=== PATIENT | female | born 1995 | race Caucasian/White ===

== ENCOUNTER 2018-06-06 13:19 | Emergency (ER) | payer OTHER, SELFPAY ==
[2018-06-06 13:22] VITALS: BP 117/50; PULSE 76; RESP 14; TEMP 36.6; O2SAT 97; BMI 22.1
[2018-06-06 13:30] VITALS: BP 117/50; PULSE 76; RESP 14; O2SAT 98
[2018-06-06] MEDS: Diphth,Pertuss(Acell),Tet Vac 0.5 ML Vial IM (14:20)
--- NOTE | 2018-06-06 14:46 | ED.VISSUMM ---
- ER Visit Summary Date of Service: 06/06/18 Chief Complaint: Thumb laceration History of Present Illness: The patient is a 22 F who presents with a thumb laceration. She accidentally cut her left thumb with a serrated knife while at work. She is uncertain of her last tetanus immunization. No other injuries. This occurred just prior to arrival. Physical Examination: Afebrile vitals are normal Heart regular rate No respiratory distress There is a 1 cm laceration of the distal left thumb which involves the very tip of the nail bed along the ulnar side of the thumb brisk capillary refill normal sensation light touch Test Results: Not indicated Emergency Department Course and Treatment: Patient was anesthetized utilizing a digital block. Wound was cleansed with sterile saline. The small avulsed section nail was removed. The skin was repaired using 2 simple interrupted 5-0 nonabsorbable sutures. There is no subungual hematoma. There is only a very tiny section of the nailbed involvement I do not believe any nailbed repair is warranted. Instructed on local wound care. She understands return for new or worsening symptoms was discharged home. Treatment Plan: [] Disposition: Discharge Impression: Left thumb laceration This note was generated with [employer] dictation software. It may contain incorrect words, spelling, and punctuation that were not noted in review of the chart prior to signing ED Disposition - Plan for ED Patient: Chief Complaint: Laceration Referrals: Evens Brand MD [Primary Care Provider] -
--- NOTE | 2018-06-06 14:49 | ED.DEP ---
ED Disposition - Plan for ED Patient: Chief Complaint: Laceration Instructions: ED Laceration Hand Referrals: Evens Brand MD [Primary Care Provider] -
[2018-06-06 14:52] VITALS: BP 120/74; PULSE 80; RESP 14; O2SAT 99
== END 2018-06-06 14:53 | disposition home or self-care (01) ==
PROVIDERS: Emergency Provider Emergency Medicine; Family Provider Family Medicine; PCP Family Medicine
DX: S61.112A Laceration without foreign body of left thumb with damage to nail, initial encounter (principal); W26.0XXA Contact with knife, initial encounter; Y93.9 Activity, unspecified; Y92.9 Unspecified place or not applicable
CPT/HCPCS: 12001; 90471; 90715; 99283

== ENCOUNTER 2019-11-22 21:58 | Emergency (ER) | payer OTHER, SELFPAY ==
[2019-11-22] VITALS (7 sets, daily range): BP systolic 105–136; BP diastolic 70–87; PULSE 83–108; RESP 15–18; TEMP 36.7; O2SAT 97–99; BMI 22.8
--- NOTE | 2019-11-22 22:09 | RAD_ITS ---
HISTORY: Injury on trampoline heart. Deformity. Findings: Trimalleolar fracture is present with dislocation. The talus is dislocated laterally with the distal fibular fracture and with the medial malleolus fracture. There is apex dorsal and medial to the distal fibular fracture. Soft tissue swelling is present around the ankle. An ankle effusion is present. RAD/Ankle 2 Views IMPRESSION: Trimalleolar fracture with lateral dislocation of the talus relative to the distal tibia at 2245 Reported and signed by: Abdirashid Sloan MD Electronically Signed: Abdirashid Sloan MD at 22:44 EST Tel , Service support ,
[2019-11-22] MEDS: Propofol 200 MG/20 ML Vial IV BOLUS (23:11)
--- NOTE | 2019-11-22 23:24 | RAD_ITS ---
HISTORY: Reduction of trimalleolar fracture. 3 images of the left ankle. Comparison study is November 22, 2019. Findings: The trimalleolar fracture dislocation has been mostly reduced. Dorsal angulation to the distal fibula fracture persists. A cast has been placed. RAD/Ankle min 3 Views IMPRESSION: Improved alignment of trimalleolar fracture with reduction. Persistent apex dorsal angulation of distal fibular fracture at 2346 Reported and signed by: Abdirashid Sloan MD Electronically Signed: Abdirashid Sloan MD at 23:45 EST Tel , Service support ,
[2019-11-22] MEDS: Ondansetron 4 MG/2 ML Vial IV (23:44)
[2019-11-22] MEDS: Morphine 4 MG/ML Syringe IV (23:47)
--- NOTE | 2019-11-22 23:53 | ED.DCSUM_ITS ---
- ER Visit Summary Date of Service: 11/22/19 Procedural sedation note: I was asked by the patient's attending emergency physician Dr. Lewis to assist with sedation for the closed reduction of fracture dislocation of the left ankle. Patient last had solid food approximately 5 hours before procedure. This is a emergent procedure. Patient received roughly 1 mg/kg bolus of propofol followed by 0.5 mg/kg boluses adequate sedation was achieved and the procedure was ended. Patient did not have any apnea, hypoxia, hypotension or evidence of aspiration. She was allowed to recover without incident. This note was generated with [employer] dictation software. It may contain incorrect words, spelling, and punctuation that were not noted in review of the chart prior to signing ED Disposition - Plan for ED Patient: Referrals: Evens Horton MD [Primary Care Provider] -
--- NOTE | 2019-11-23 00:10 | ED.DCSUM_ITS ---
- ER Visit Summary Date of Service: 11/23/19 Chief Complaint: Left ankle injury History of Present Illness: The patient is a 24 F no significant past medical or surgical history. Patient was jumping on a trampoline when she injured her left ankle. This occurred at least an hour ago maybe longer. She has an obvious deformity. Denies any other injuries. No prior history. Physical Examination: Young female no acute distress. Tolerating the pain well. Vital signs are stable afebrile. H EENT exam atraumatic. Pupils round reactive light. No signs of trauma. Neck nontender. Trachea midline. Lungs clear to auscultation bilaterally. Heart regular rhythm no murmur. Chest wall nontender. Abdomen soft and nontender. Normal bowel sounds no peritoneal signs. Extremities moves all 4. Neurovascular intact. Her left hip and knee are nontender. Her left ankle has an obvious deformity. Skin is intact. It appears to be a fracture dislocation. She does have a palpable DP pulse. She is able to wiggle her toes. Has normal touch sensation to her foot and no gross bony deformity in her foot. Achilles tendon is intact. Neurologically she is awake alert with no focal deficits. Test Results: Ankle x-ray 3 views shows trimalleolar fracture of the ankle and dislocation. Post reduction ankle x-ray again shows a better aligned trimalleolar fracture. On the lateral view the fibula fracture is still posteriorly displaced. Emergency Department Course and Treatment: Patient has a fracture distribution of her left ankle which closed. The foot is neurovascularly intact. She was consciously sedated with propofol by the other emergency physician. I manually reduce the fracture dislocation. I again checked the dorsalis pedis pulse. And she was placed in a well-padded posterior Ortho-Glass short leg splint with lateral stirrups. Patient is doing very well with her sedation she is awake and alert. She was given morphine IV for pain and Zofran. Treatment Plan: Ice and elevate. No weightbearing. Crutches. [place] for pain 20 no refill. Motrin for pain and swelling. Follow-up with of orthopedics. Disposition: Discharge Impression: Acute left ankle closed trimalleolar fracture dislocation. Conscious sedation with propofol Manual reduction of the fracture dislocation Short leg posterior splint Ortho-Glass with bilateral stirrups This note was generated with Dragon dictation software. It may contain incorrect words, spelling, and punctuation that were not noted in review of the chart prior to signing ED Disposition - Plan for ED Patient: Disposition: Home or Assisted Living Instructions: FRACTURE, Lower Extremity Prescriptions: Hydrocodone/Acetaminophen [[place] 5-325 Tablet] 1 ea PO Q4H PRN PRN #20 tab PRN Reason: Pain Or Fever Prescription Printed Referrals: Linda Barahona DO [STAFF PHYSICIAN] - As soon as possible Additional Instructions: Ice and elevate your ankle to decrease pain and swelling. Motrin for pain and swelling. [place] for more severe pain. No weightbearing. Crutches to get around. Call follow-up with of orthopedics this coming week.
--- NOTE | 2019-11-23 00:15 | ED.DEP ---
ED Disposition - Plan for ED Patient: Disposition: Home or Assisted Living Instructions: FRACTURE, Lower Extremity Prescriptions: Hydrocodone/Acetaminophen [[place] 5-325 Tablet] 1 ea PO Q4H PRN PRN #20 tab PRN Reason: Pain Or Fever Prescription Printed Referrals: Linda Barahona DO [STAFF PHYSICIAN] - As soon as possible Additional Instructions: Ice and elevate your ankle to decrease pain and swelling. Motrin for pain and swelling. [place] for more severe pain. No weightbearing. Crutches to get around. Call follow-up with of orthopedics this coming week.
[2019-11-23] MEDS: HYDROcodone Bitartrate/Apap 5/325 Tablet PO (00:22)
[2019-11-23 00:25] VITALS: BP 96/64; PULSE 74; RESP 16; O2SAT 96
== END 2019-11-23 00:29 | disposition home or self-care (01) ==
PROVIDERS: Emergency Provider Emergency Medicine; Family Provider Family Medicine; PCP Family Medicine
DX: S82.852A Displaced trimalleolar fracture of left lower leg, initial encounter for closed fracture (principal); Y93.44 Activity, trampolining; Y92.89 Other specified places as the place of occurrence of the external cause; Y99.9 Unspecified external cause status
CPT/HCPCS: 27818; 73600; 73610; 96374; 96375; 99152; 99285; J7040; A4216; J2405

== ENCOUNTER 2019-12-03 09:17 | Day surgery (SDC) | payer OTHER, SELFPAY ==
[2019-11-25 08:21] VITALS: BMI 22.8
--- NOTE | 2019-11-25 08:57 | HP_ITS ---
I have re-examined the patient. There are no clinical changes since date of exam. Intake Vital Signs 11/25/19 Height 5 ft 2 in 11/25/19 Weight: 135 lb 11/25/19 BMI 24.7 Intake Visit Reasons: LEFT ANKLE Allergies Penicillins Allergy (Verified 11/22/19 22:02) Unknown Medications Norethindrone AC-Eth Estradiol [Junel 1 mg-20 Mcg Tablet] 1 tab PO DAILY 11/22/19 [History Confirmed 11/25/19] Hydrocodone/Acetaminophen [[place] 5-325 Tablet] 1 ea PO Q4H PRN PRN #20 tab 11/23/19 [Rx Confirmed 11/25/19] PFSH Social History (Updated 11/25/19 @ 08:57 by Linda Barahona DO) Smoking Status: Never smoker HPI LEFT ANKLE: Surgical H&P: Yes Details: Parts of this documentation were recorded by a scribe, this documentation accurately reflects the service provided and the decisions made by me, Linda Barahona DO 11/25/19 0815. PEYTON LAY is a 24 year old F NEW patient here today for left ankle injury. DOI: 11/22/2019. Patient [place] and she was doing flips and she landed on her ankle wrong and states that she may twisted her ankle. She had instant pain and was then taken to [facility] and she had images taken there. Patient was then reduce, and placed in a splint and mother wished to F/U with Dr. Barahona. Denies any previous fx to the left ankle. Denies numbness, tingling or other associated symptoms. Able to move all toes. Warm to touch. ROS Musc Reports joint pain, Reports joint swelling, Reports limited joint movement, Denies numbness, Reports radiating pain into limb, Reports stiffness, Denies tingling Skin/Breast Denies redness, Denies lesions, Denies itching, Denies rash, Denies skin swelling Neuro No numbness, No tingling Ortho Exam Left Foot/Ankle Date of injury: 11/22/19 Skin: Yes Soft Tissue Swelling Exam: Yes Soft tissue swelling Sensation: Deep Peroneal Nerve: I, Superficial Peroneal Nerve: I, Tibial Nerve: I, Sural Nerve: I, Saphenous Nerve: I Pulses: Dorsalis Pedis: 2 ANKLE: neg homans sign No rales rhonchi wheezing, no abdominal pain, no no audible bruits Assessment & Plan Problems 1. Closed trimalleolar fracture of left ankle, initial encounter S82.264F Plan Personally reviewed the patient's medical history, medications, surgeries and recent exams if available. X-rays were reviewed. There is no obvious fracture, dislocation, or lucency noted. Educated on the anatomy of the ankle and explained that her fracture needs surgical repair. Her swelling today is to great to operate tomorrow. We will have her return on to check for wrinkle sign for surgery on sunday. Reapplied splint today with webroll. Reviewed post op restrictions of boot and limited weight bearing. Explained the use of Lovenox post op due to her control, she should stop it now anyway and her need to work on ankle pumps and moving post op to decrease risk of DVT. Reviewed the pre-operative plans with the patient. Risks and benefits of the procedure were fully explained, including but not limited to infection, neurovascular injury, continued pain, arthritis, stiffness, need for further surgery, re-injury, DVT, PE, general risks of anesthesia, and loss of limb or life. The patient understands all the risks and does wish to proceed with written consent. Follow up or sooner if pain, swelling, numbness or associated symptoms, or concerns develop. All questions answered. Patient in agreement of plan. Coding Level of Care Code Off vis,new,level 3 Diagnoses Closed trimalleolar fracture of left ankle, initial encounter S82.930G ??Encounter type: initial encounter 11/25/19 0858 <Electronically signed by Linda brown DO> Date _ Linda Barahona DO
[2019-12-01 14:59] VITALS: BMI 22.8
[2019-12-03] VITALS (7 sets, daily range): BP systolic 102–145; BP diastolic 51–90; PULSE 66–129; RESP 15–20; TEMP 36.6–37; O2SAT 98–100; BMI 22.6
--- NOTE | 2019-12-03 09:14 | PCM.DC.ORTHO ---
Discharge Diet: No Restrictions - non weight bearing on operative extremity for 6 weeks, keep splint clean, dry and intact, call with concerns, follow up in 2 weeks, elevate toes above nose, ice and move toes as much as possible Discharge Activity: May Not Drive May shower in (days): 1 Ice area for (Minutes): 20 - Every hour while awake. Weight Bearing Status: Weight bearing as tolerated Keep extremity elevated above heart level: Operative Extremity Call your doctor if your incision/area has: Continuous Slow Oozing, Sudden Increased Bleeding, Increased Pain/ Swelling, Increased Redness, Foul Smelling Discharge Call your doctor if you observe: Fever of 101 or Higher, Coldness, Increased Pain, Numbness or Tingling, Change in Color, Calf discomfort Allergies/Adverse Reactions: Allergies Penicillins Allergy (Verified 12/03/19 09:36) Unknown Medications to take at Discharge Hydrocodone/Acetaminophen [[place] 5-325 Tablet] 1 ea PO Q4H PRN PRN #20 tab 11/23/19 Enoxaparin Sodium [Lovenox] 40 mg SQ QHS 42 Days #42 ml 12/03/19 Hydrocodone Bitart/Apap 5-325 [[place] 5MG-325MG] 1 - 2 tab PO Q6H PRN PRN 5 Days #40 tab 12/03/19 Ondansetron [Zofran] 8 mg PO Q8H PRN PRN #20 tab 12/03/19 The following prescriptions were given: Enoxaparin Sodium [Lovenox] 40 mg SQ QHS 42 Days #42 ml Transmission Status: Pending to [facility] Hydrocodone Bitart/Apap 5-325 [[place] 5MG-325MG] 1 - 2 tab PO Q6H PRN PRN 5 Days #40 tab PRN Reason: Pain Transmission Status: Received by [facility] Ondansetron [Zofran] 8 mg PO Q8H PRN PRN #20 tab PRN Reason: Nausea Transmission Status: Pending to [facility] Primary Care Physician: Evens Horton MD [Primary Care Provider] - Test Results: Test results from this visit will be discussed in further detail at your follow-up appointment, if applicable. Please Follow Up With: Linda Barahona, DO - [phone]
--- NOTE | 2019-12-03 09:15 | OP.PCM_ITS ---
Report of Operation Date of Procedure: 12/03/19 Pre-Operative Diagnosis: left ankle trimalleolar fracture Post-Operative Diagnosis: same Surgery/Procedure Performed:: ORIF right trimalleolar fracture tax accounting manager: Chris Rios Type of Anesthesia:: General Anesthesiologist: Merrick Dooley Drains: tt-120 min Estimated Blood Loss (mL): 15cc Fluids Replaced: 1100cc lr Description of Procedure: Preoperative note Patient is a 24-year-old female who was at a trampoline park doing a back flip and sustained a fracture dislocation of her left ankle. Patient was seen in the emergency room closed reduced and was seen in my office. She was too swollen to do surgery did rewrap her change her splint out and watched her until the swelling had decreased and she had a positive wrinkle test. At that point decided to proceed with ORIF of her left ankle. Please note that we did discuss with the family preoperatively the risks of arthritis due to the injury itself regardless of surgical intervention. Family is aware. Risk benefits and alternatives were discussed with family. Risks include but not limited to blood loss, blood clot, infection, neurovascular tree, arthritis, failure procedure, loss of life and loss of limb. Patient also is on control she was told to stop it soon as we she was seen initially in the office and we will place her on Lovenox postoperatively she was start Lovenox at postop day 0 in the evening. This again was discussed with family mom is a nurse we discussed again the signs and symptoms of clots and if she has any issues to come to the emergency room to get evaluated sooner than later. Family is aware. Operative note Patient seen and examined preop holding area. Left leg was marked. Patient brought to the operating room placed supine on the operating table. Signed, anesthesia, antibiotics were administered. Left leg was prepped and draped in usual sterile fashion with tourniquet around her upper thigh. All bony prominences well-padded SCDs placed on her contralateral limb. We then marked out our incision for for our lateral and medial fixation using fluoroscopy and making sure that we avoided any fracture blisters that she had had one medially that was little more posterior and we would limit more anterior with her medial incision. The left leg was then elevate exsanguinated tourniquet was raised her pressure of 250 torr. We then used a 15 blade to make our about 12 cm incision on the lateral aspect of the lateral fibula. Dissect down tenotomies level of the periosteum which was elevated we then visualized the fracture site which was debrided with combination of a bone pick and irrigation. We then reduced the fracture with little bit of traction rotation and lobster claws. We know that the posterior spike was too thin to place and then to be able to place an anterior posterior screws were then replaced the were able to then place been the plate and placed ourplate on the posterior aspect of the fibula. We placed an interfrag screw through the plate initially, crossing the fracture site from posterior anterior and then placed another screw just proximal to the fracture site and then sequentially filled the remaining screw holes 3 making sure that we had 3 proximal and 3 distal to the fracture site. Please note that we the most distal screw because it was encroaching the joint we did place a cancellus 4 oh screw. We then irrigated the incision with copious nonsterile saline. We then moved to the medial side. We made a curvilinear incision on the anterior aspect of the tibia wrapping around the medial malleolus. We dissected down with tenotomies to level of the fascia. The fascia was then exc ised and we were able to visualize a fracture site fracture site was debrided we pulled the periosteum out of the fracture site anteriorly and medially. Please note all neurovascular ruptures were protected at all times. We attempted to reduce the fracture we were use a lobster claw and a [id number] reduction and found that the best reduction was actually placed a 4 oh cancellus screw from an 8P in order to is the fractures extend more anteriorly and was just not a typical medial mall tri-mall piece. We then used Synthes hook plate over the medial mall and placed a homerun screw through the medial mall 4 oh partially- threaded cancellus screw please see chart for length of screw. We then placed and acentrically drilled proximal screw in order to fixate the plate down to bone proximally as well. At that point we did have anatomic reduction visually. Please note that throughout the case we took multiple images in both AP and lateral planes to confirm good placement of our plate and screws. After securing the plate proximally and through the homerun screw on the medial mall we then placed another screw at the second most proximal screw hole and through the plate. The point we had good fixation of our fracture in good stability. We irrigated the incision with copious sterile saline. We then placed we then performed a cotton test and noted that we did not have any widening of the tib- fib clear space or medial mall clear space. Again the tourniquet was then deflated for total working time of 120 minutes. We then closed the medial incision with 3-0 Vicryl and 4-0 nylon and we closed the periosteum over the plate laterally with a 2-0 Vicryl and closed the skin subcuticular with 3-0 Vicryl and the skin with 4-0 nylon. Sterile dressings were applied and a posterior splint was applied to the left lower extremity. Patient tolerated procedure well no complication child recovery room in stable condition. Postoperative note Nonweightbearing left leg Lovenox to start tonight Again discussed with family if patient has any issues with calf pain and to go to emergency room for Doppler ultrasound Call with increased pain numbness tingling further issues arise This note was generated with [employer] dictation software. It may contain incorrect words, spelling, and punctuation that were not noted in checking the note before signing.
[2019-12-03 09:37] LABS: Internal QC Validated? YES +Cl - CLEAR BKGD
[2019-12-03 09:43] LABS: Pregnancy, Urine Negative Negative
[2019-12-03] MEDS: Lactated Ringers 1,000 ML 100 ML IV ×2 (09:50→14:07)
[2019-12-03] MEDS: Cefazolin 2 GM in 0.9% Normal Saline 100 ML IV (10:12)
--- NOTE | 2019-12-03 10:12 | RAD_ITS ---
STUDY: X-RAY - LEFT ANKLE REASON FOR EXAM: ORIF left ankle. TECHNIQUE: 7 intraoperative images of the ankle. COMPARISON: Radiographs 11/22/2019. FINDINGS: There are orthopedic plates and screws transfixing distal fibular and medial malleolar fractures in anatomic alignment and position. There is also a posterior malleolar fracture. Electronically Signed: Demetrio Warren MD at 14:41 EST Tel , Service support , RAD/Ankle min 3 Views
[2019-12-03] MEDS: Mupirocin Ointment 22gm Tube 1 APPLIC (13:39)
[2019-12-03] MEDS: HYDROcodone Bitartrate/Apap 5/325 Tablet PO (15:26)
== END 2019-12-03 16:30 | disposition home or self-care (01) ==
LOC: SDC 09:21 → AC 09:22
PROVIDERS: Anesthesiology; Family Provider Family Medicine; PCP Family Medicine; Referring Provider Orthopaedic Surgery; Visit Provider Orthopaedic Surgery
PROC: (CPT 27822; principal; 2019-12-03 10:40)
DX: S82.852A Displaced trimalleolar fracture of left lower leg, initial encounter for closed fracture (principal); X50.1XXA Overexertion from prolonged static or awkward postures, initial encounter; Y93.44 Activity, trampolining; Y92.89 Other specified places as the place of occurrence of the external cause; Y99.9 Unspecified external cause status; Z88.0 Allergy status to penicillin
CPT/HCPCS: 01480; 27822; 73610; 76000; 81025; C1713; J7120; J2405

== ENCOUNTER → 2019-12-18 14:59 | Outpatient (CLI) | payer OTHER, SELFPAY ==
[2019-12-03 09:37] VITALS: BMI 22.6
--- NOTE | 2019-12-18 15:00 | RAD_ITS ---
STUDY: X-RAY - LEFT ANKLE REASON FOR EXAM: Follow-up left ankle surgery/fracture. TECHNIQUE: 3 view(s) of the ankle. COMPARISON: Intraoperative images 12/03/2019. FINDINGS: There are orthopedic plates and screws transfixing distal fibular and medial malleolar fractures remaining in anatomic alignment and position. There is a posterior malleolar fracture. Normal tibiotalar articulation and ankle mortise. Normal visualized talus and calcaneus. The visualized subtalar, talonavicular, calcaneocuboid and tarsal articulations are normal. There is an overlying cast. RAD/Ankle min 3 Views IMPRESSION: No interval change of ORIF of distal fibular and medial malleolar fractures. Electronically Signed: Demetrio Warren MD at 15:25 EST Tel , Service support ,
== END ==
PROVIDERS: PCP Family Medicine; Referring Provider Orthopaedic Surgery; Visit Provider Orthopaedic Surgery
DX: S82.892A Other fracture of left lower leg, initial encounter for closed fracture (principal)
CPT/HCPCS: 73610

== ENCOUNTER → 2020-01-15 15:58 | Outpatient (CLI) | payer OTHER, SELFPAY ==
[2020-01-15 15:54] VITALS: BMI 22.6
--- NOTE | 2020-01-15 15:59 | RAD_ITS ---
STUDY: X-RAY - LEFT ANKLE REASON FOR EXAM: Postoperative follow-up. TECHNIQUE: 3 view(s) of the ankle. COMPARISON: Radiographs 12/18/2019. FINDINGS: There are orthopedic plates and screws transfixing distal fibular and medial malleolar fractures in anatomical alignment and position. There is a nondisplaced posterior malleolar fracture. Normal tibiotalar articulation and ankle mortise. Normal visualized talus and calcaneus. The visualized subtalar, talonavicular, calcaneocuboid and tarsal articulations are normal. There is soft tissue swelling. RAD/Ankle min 3 Views IMPRESSION: No interval change of ORIF of distal fibular and medial malleolar fractures. Electronically Signed: Demetrio Warren MD at 9:45 EST Tel , Service support ,
== END ==
PROVIDERS: PCP Family Medicine; Referring Provider Orthopaedic Surgery; Visit Provider Orthopaedic Surgery
DX: M25.572 Pain in left ankle and joints of left foot (principal)
CPT/HCPCS: 73610

== ENCOUNTER 2020-03-16 15:30 | Outpatient (RCR) | payer OTHER, SELFPAY ==
[2019-12-18 15:32] VITALS: BMI 22.6
--- NOTE | 2020-01-06 09:41 | HP.PTEVAL ---
Patient's Visit Information PEYTON LAY is a 24 year old F referred to Physical Therapy by Dr. Linda Barahona DO with a diagnosis of L ankle ORIF, tib/fib fx. Date of Evaluation: 12/30/19 Physical Therapist: Bart Yarbrough DPT - Visit Plan Frequency: 1-2x /Week Duration: 8 weeks Plan: Start with ROM of working into increased DF focus. Add in light band exercises, but focus on ROM currently, progressing as tolerated. Pt. is NWBing currently. Pt. is still continue to focus on ROM as priority. - Subjective Findings: Pt. is here today for her initial evaluation with diagnosis of L ankle ORIF (TIB/FIB). DOS: 12/03/19. Pt. is a active 24 F who was tumbling at [employer] and landed wrong resulting in tib/fib fx. Pt. works at [employer] where she is on her feet most of the time. She is currently off work. Pt. is currently non wt. bearing, expected to be possible partial or WBing as tolerated at 6 weeks. Pt. reports minimal pain currently. Pt. arrives with crutchs maintaining proper non WBing on her LLE. Pt. has proper use. Pt. denies N/T no fever and no issues with ROM exercises at home. Pt. is very active and is hopeful to get back to active life style. She is in CAM boot NWBing. - Pain L ankle Pain Intensity (Out of 10): 2 Pain Intensity Range: 1, 6 - Objective POSTURE: Pt. has good posture. Pt. has good stability with crutches and proper NWBing on her LLE. PALPATION: Pt. has well healing incisions, no signs of infection. No calf pain, negative homans sign. NEURO: all intact, reduced sensation near to the lateral incision. ROM: L ankle- PF 38deg, DF 2 deg, INV 4deg, EVR 4deg. Tightness noted in all ranges. L knee- full ROM, L hip- full ROM. RLE- full throughout. MMT: RLE- 5/5 throughout; LLE- ankle- not tested; knee- 5/5, hip- 5/5. GAIT: Pt. ambulates well with crutches maintaining proper WBing. Pt. is able to negotiate steps with proper use. - Goals Goal 1:: LTG: Pt. to be I with HEP. Goal Time Frame: 4-6 Weeks Goal 2:: STG: Pt. to have increased ROM of L ankle by 15deg in all ranges without increase in symptoms. Goal Time Frame: 2-4 Weeks Goal 3:: LTG: Pt. to have full ROM of L ankle without increase in symptoms. Goal Time Frame: 4-6 Weeks Goal 4:: STG: pt. to sleep throughout the night without increase in symptoms. Goal Time Frame: 2-4 Weeks Goal 5:: LTG: Pt. to have normal gait pattern without AD without limitations. Goal Time Frame: 4-6 Weeks Goal 6:: LTG: Pt. to have full strength of LLE without increase in symptoms. Goal Time Frame: 6-8 Weeks - Rehabilitation Potential Physical Therapy Diagnosis: Pt. has signs and symptoms consistent with L ankle ORIF, DOS 12/03/19. Pt. has subsequent hypomobility, weakness, difficulty with walking, and decreased tolerance to work and ADLs. Pt. would benefit from PT to address the above limitations. Rehabilitation Potential: Excellent - Anticipated Interventions Patient/Client Instruction: Educate patient on: Condition, Plan of Care, Risk Factors, Benefits of Fitness Program For the Purpose of:: To improve self management, To prevent re-injury, To improve ability to perform tasks related to life management, To improve tolerance to ADL's Therapeutic Exercise to Include: Strength training, Power training, Endurance training, Balance training, Body mechanics, Postural training, Flexibilty training, Gait and locomotor training, Passive ROM, Active ROM For the Purpose of:: To decrease pain, To decrease swelling/inflammation, To increase ROM, To increase oxygenation perfusion, To improve muscle performance and motor function, To improve ability to perform ADL's, To decrease level of supervision to perform tasks Manual Therapy Techniques to Include: Passive ROM, Soft tissue mobilization For the Purpose of:: To decrease pain, To decrease swelling/inflammation, To increase ROM, To improve nutrient delivery to tissue, To improve muscle performance and motor function IF ES: Yes Cryotherapy (ice pack, ice massage): Yes For the Purpose of:: To decrease pain, To decrease swelling/inflammation, To increase ROM Thank you for the opportunity to evaluate your patient. For Medicare and Medicare HMO plans, please review the plan of care and approve it. It will need to be FAXED BACK to us at [phone] for Medicare purposes. For Medicare only, by signing this I certify the plan of care. Please let me know if there are questions or concerns regarding this plan of care. Physician Signature: Date:
--- NOTE | 2020-02-10 13:06 | HP.PTREVAL ---
Dr. Linda Barahona, DO, It has been my pleasure to treat PEYTON LAY over the last 4 visits for L ankle ORIF, tib/fib fx. Please see the progress note below for an update on the physical therapy plan of care! Subjective: Pt. arrives today without brace or CAM boot. She wore an ASO and crock shoe for work the past weekend. She reports the brace seem to cause her more discomfort. I talked to her about ankle instability after being in CAM boot for a length of time. Pt. reports having 1-2/10 pain in her lateral ankle pre treatment. Pt. reports being HEP compliant. Objective/Function: Pt. tolerated all PT without adverse reaction. Pt. continues to progress as expected. Pt. reports no increase in pain with exercises this date. Pt. continues to have decreased ankle DF during final stage of stance phase progressing to pre swing. L ankle ROM: DF 7deg, PF 41deg, INV/EVR 12deg/ea. MMT: 5-/5 throughout LLE. Pt. has increased difficulty with descending steps during L stance phase. Pt. reports increased symptoms during this phase. Plan Plan: Cont. with POC. Pt. is to follow up [facility] physician, but unsure when. Goals Goal 1:: LTG: Pt. to be I with HEP. Goal Time Frame: 4-6 Weeks Goal Progress: Progressing Goal 2:: STG: Pt. to have increased ROM of L ankle by 15deg in all ranges without increase in symptoms. Goal Time Frame: 2-4 Weeks Goal Progress: Progressing Goal 3:: LTG: Pt. to have full ROM of L ankle without increase in symptoms. Goal Time Frame: 4-6 Weeks Goal Progress: Progressing Goal 4:: STG: pt. to sleep throughout the night without increase in symptoms. Goal Time Frame: 2-4 Weeks Goal Progress: Goal Met Goal 5:: LTG: Pt. to have normal gait pattern without AD without limitations. Goal Time Frame: 4-6 Weeks Goal Progress: Progressing Goal 6:: LTG: Pt. to have full strength of LLE without increase in symptoms. Goal Time Frame: 6-8 Weeks Goal Progress: Progressing Anticipated Interventions Patient/Client Instruction: Educate patient on: Condition, Plan of Care, Risk Factors, Benefits of Fitness Program For the Purpose of:: To improve self management, To prevent re-injury, To improve ability to perform tasks related to life management, To improve tolerance to ADL's Therapeutic Exercise to Include: Strength training, Power training, Endurance training, Balance training, Body mechanics, Postural training, Flexibilty training, Gait and locomotor training, Passive ROM, Active ROM For the Purpose of:: To decrease pain, To decrease swelling/inflammation, To increase ROM, To increase oxygenation perfusion, To improve muscle performance and motor function, To improve ability to perform ADL's, To decrease level of supervision to perform tasks Manual Therapy Techniques to Include: Passive ROM, Soft tissue mobilization For the Purpose of:: To decrease pain, To decrease swelling/inflammation, To increase ROM, To improve nutrient delivery to tissue, To improve muscle performance and motor function IF ES: Yes Cryotherapy (ice pack, ice massage): Yes For the Purpose of:: To decrease pain, To decrease swelling/inflammation, To increase ROM Please do not hesitate to contact me at [phone] by phone or if you have questions or concerns regarding this new plan of care! Sincerely, Bart Yarbrough DPT
--- NOTE | 2020-03-23 08:33 | HP.PTREVAL ---
Dr. Linda Barahona, DO, It has been my pleasure to treat PEYTON LAY over the last 5 visits for L ankle ORIF, tib/fib fx. Please see the progress note below for an update on the physical therapy plan of care! Subjective: Pt. reports I am doing pretty well. PT. is back to work. She still has a slight limp with walking. Pt. 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 She is walking without brace. Pt. plans to wear brace for more aggressive activities. Pt. reports no pain currently. Objective/Function: Pt. is doing well. Pt. reports no pain. GAIT: Pt. ambulates well. Pt. has slight antalgic pattern with lack of DF during end of stance, pre swing phase. Pt. reports no pain with gait. More apperant with increasing speed of gait. Pt. was able to jog lightly with out increase in soreness. STAIRS: Pt. is able to complete without increase in symptoms. Pt. has early heel off with descending. No pain noted. ROM: Pt. has good ROM, except 12deg of DF with overpressure. MMT: 4+/5 throughout. except 4/5 EVR mild soreness and 5/5 with PF. Plan Plan: Pt. is doing well. Pt. desires to continue with strengthening and stretching at home. I gave her a new HEP with more aggressive strengthening and ROM. Pt. to add in walking progression. Pt. want to do stuff on her own and follow back up with PT in a few weeks as needed. Goals Goal 1:: LTG: Pt. to be I with HEP. Goal Time Frame: 4-6 Weeks Goal Progress: Goal Met Goal 2:: STG: Pt. to have increased ROM of L ankle by 15deg in all ranges without increase in symptoms. Goal Time Frame: 2-4 Weeks Goal Progress: Progressing Goal 3:: LTG: Pt. to have full ROM of L ankle without increase in symptoms. Goal Time Frame: 4-6 Weeks Goal Progress: Progressing Goal 4:: STG: pt. to sleep throughout the night without increase in symptoms. Goal Time Frame: 2-4 Weeks Goal Progress: Goal Met Goal 5:: LTG: Pt. to have normal gait pattern without AD without limitations. Goal Time Frame: 4-6 Weeks Goal Progress: Progressing Goal 6:: LTG: Pt. to have full strength of LLE without increase in symptoms. Goal Time Frame: 6-8 Weeks Goal Progress: Progressing Anticipated Interventions Patient/Client Instruction: Educate patient on: Condition, Plan of Care, Risk Factors, Benefits of Fitness Program For the Purpose of:: To improve self management, To prevent re-injury, To improve ability to perform tasks related to life management, To improve tolerance to ADL's Therapeutic Exercise to Include: Strength training, Power training, Endurance training, Balance training, Body mechanics, Postural training, Flexibilty training, Gait and locomotor training, Passive ROM, Active ROM For the Purpose of:: To decrease pain, To decrease swelling/inflammation, To increase ROM, To increase oxygenation perfusion, To improve muscle performance and motor function, To improve ability to perform ADL's, To decrease level of supervision to perform tasks Manual Therapy Techniques to Include: Passive ROM, Soft tissue mobilization For the Purpose of:: To decrease pain, To decrease swelling/inflammation, To increase ROM, To improve nutrient delivery to tissue, To improve muscle performance and motor function IF ES: Yes Cryotherapy (ice pack, ice massage): Yes For the Purpose of:: To decrease pain, To decrease swelling/inflammation, To increase ROM Please do not hesitate to contact me at [phone] by phone or if you have questions or concerns regarding this new plan of care! Sincerely, VAUGHN MalikT
--- NOTE | 2020-06-17 07:21 | HP.PT.NRP ---
PEYTON LAY was seen in my office for initial evaluation on 12/30/19. The following Plan of Care was established for this patient: Initial Frequency: 1-2x /Week Initial Duration: 8 weeks Patient/Client Instruction: Educate patient on: Condition, Plan of Care, Risk Factors, Benefits of Fitness Program For the Purpose of:: To improve self management, To prevent re-injury, To improve ability to perform tasks related to life management, To improve tolerance to ADL's Therapeutic Exercise to Include: Strength training, Power training, Endurance training, Balance training, Body mechanics, Postural training, Flexibilty training, Gait and locomotor training, Passive ROM, Active ROM For the Purpose of:: To decrease pain, To decrease swelling/inflammation, To increase ROM, To increase oxygenation perfusion, To improve muscle performance and motor function, To improve ability to perform ADL's, To decrease level of supervision to perform tasks Manual Therapy Techniques to Include: Passive ROM, Soft tissue mobilization For the Purpose of:: To decrease pain, To decrease swelling/inflammation, To increase ROM, To improve nutrient delivery to tissue, To improve muscle performance and motor function IF ES: Yes Cryotherapy (ice pack, ice massage): Yes For the Purpose of:: To decrease pain, To decrease swelling/inflammation, To increase ROM This patient was last seen in our office 03/16/20. Pertinent comments regarding their Physical therapy will appear below: Pt. was seen for her ankle fx. At our last visit she was doing well and reports back to most activities. Pt. has not been seen in several months and will be DC from PT at this point in time. At this point I will be discontinuing this patient from physical therapy. I would be happy to see this patient again in the future if found appropriate by the physician. Thank you! Bart Yarbrough, VAUGHNT
== END 2020-03-16 19:00 | disposition home or self-care (01) ==
LOC: PT 15:30
PROVIDERS: PCP Family Medicine; Referring Provider Orthopaedic Surgery; Visit Provider Orthopaedic Surgery
DX: Z98.890 Other specified postprocedural states (principal)
CPT/HCPCS: 97110; 97161; 97164

== ENCOUNTER → 2020-06-03 17:38 | Outpatient (CLI) | payer OTHER, SELFPAY ==
[2020-02-24 09:14] VITALS: BMI 22.6
== END ==
PROVIDERS: PCP Family Medicine; Referring Provider Family Medicine; Visit Provider Family Medicine
DX: R30.0 Dysuria (principal)
CPT/HCPCS: 87086; 87088

== ENCOUNTER → 2020-11-01 12:45 | Outpatient (CLI) | payer OTHER, SELFPAY ==
[2020-11-01 11:38] VITALS: BMI 23.8
[2020-11-02 14:23] LABS: Chlamydia Trachomatis by PCR Negative (Negative); Neisserai gonorrhoeae by PCR Negative (Negative); Probe Check PASS; Sample Adequacy Control PASS; Specimen Processing Control PASS
[2020-11-03 10:40] LABS: HPV Reflexed? NOT INDICATED
== END ==
PROVIDERS: PCP Family Medicine; Visit Provider Nurse Practitioner Women's Health
DX: Z11.3 Encounter for screening for infections with a predominantly sexual mode of transmission (principal); Z12.4 Encounter for screening for malignant neoplasm of cervix
CPT/HCPCS: 87491; 87591; 88175; G0145

== ENCOUNTER 2021-03-03 10:34 | Outpatient (RCR) | payer OTHER, SELFPAY ==
[2020-11-01 11:38] VITALS: BMI 23.8
== END 2021-04-19 23:59 ==
LOC: IMMUN 10:34
PROVIDERS: PCP Family Medicine; Referring Provider Family Medicine; Visit Provider Family Medicine
DX: Z23 Encounter for immunization (principal)
CPT/HCPCS: 0001A; 0002A; 91300

== ENCOUNTER → 2021-09-28 11:45 | Outpatient (CLI) | payer OTHER, SELFPAY ==
[2021-09-28 15:51] LABS: Chlamydia Trachomatis by PCR Negative (Negative); Neisserai gonorrhoeae by PCR Negative (Negative); Probe Check PASS; Sample Adequacy Control PASS; Specimen Processing Control PASS
== END ==
PROVIDERS: PCP Family Medicine; Referring Provider Nurse Practitioner Women's Health; Visit Provider Nurse Practitioner Women's Health
DX: Z11.3 Encounter for screening for infections with a predominantly sexual mode of transmission (principal)
CPT/HCPCS: 87491; 87591

== ENCOUNTER → 2022-08-16 | Outpatient (CLI) | payer OTHER, SELFPAY ==
[2022-08-18 20:07] LABS: Chlamydia By Nucleic Acid AMP Negative (Negative)
[2022-08-19 10:28] LABS: Gonococcus By Nucleic Acid AMP Negative (Negative)
== END | disposition home or self-care (01) ==
LOC: LABSPEC 16:54
PROVIDERS: PCP Family Medicine; Referring Provider Nurse Practitioner Women's Health; Visit Provider Nurse Practitioner Women's Health
DX: Z20.2 Contact with and (suspected) exposure to infections with a predominantly sexual mode of transmission (principal)
CPT/HCPCS: 87491; 87591

== ENCOUNTER → 2022-08-17 | Outpatient (CLI) | payer OTHER, SELFPAY | END | disposition home or self-care (01) | PROVIDERS: PCP Family Medicine; Visit Provider Obstetrics & Gynecology | DX: Z11.3 Encounter for screening for infections with a predominantly sexual mode of transmission (principal); N76.0 Acute vaginitis ==

== ENCOUNTER → 2023-09-21 | Outpatient (CLI) | payer OTHER, SELFPAY ==
[2023-09-28 19:27] LABS: HPV Reflexed? NOT INDICATED
== END | disposition home or self-care (01) ==
LOC: LABSPEC 16:37
PROVIDERS: PCP Family Medicine; Referring Provider Obstetrics & Gynecology; Visit Provider Obstetrics & Gynecology
DX: Z12.4 Encounter for screening for malignant neoplasm of cervix (principal)
CPT/HCPCS: 88175; G0145

== ENCOUNTER → 2023-09-27 | Outpatient (CLI) | payer OTHER, SELFPAY ==
--- NOTE | 2023-09-27 14:16 | BI_ITS ---
MAMMOGRAPHY - BILATERAL DIAGNOSTIC REASON FOR EXAM: Female, 27 years old. Breast lump at the 10:00 position of the left breast. PERTINENT HISTORY: TECHNIQUE: Digital bilateral breast viridiana (3D mammographic acquisition) in the CC and MLO projections. 2-D mediolateral oblique (MLO) and craniocaudad (CC) views of both breasts were obtained. CAD: Full Field Digital Mammography with Computer Added Detection was performed. COMPARISON: None. Baseline examination. FINDINGS: Breast Composition: The breasts are extremely dense, which lowers the sensitivity of mammography. There are no dominant masses or suspicious calcifications. No other significant abnormalities are identified. BI/DIAG MAMM W/CAD, BILAT IMPRESSION: Negative diagnostic mammogram. With the patient''s history of a breast lump in the left breast as described, correlation with ultrasound is recommended. ASSESSMENT CATEGORY: BIRADS Category 0: Incomplete. Need additional imaging evaluation. A letter regarding these results will be sent to the patient by the facility within 30 days. Approximately 10% of breast cancers are not detected by mammography. A normal mammogram should not delay biopsy of a clinically suspicious abnormality. Electronically Signed: Jaime Harry MD at 15:09 EST ,
--- NOTE | 2023-09-27 14:16 | US_ITS ---
STUDY: ULTRASOUND BREAST - LEFT REASON FOR EXAM: Female, 27 years old. Palpable lump left breast. TECHNIQUE: Axial and longitudinal images of the LEFT breast were performed with a high resolution ultrasound transducer. # OF IMAGES: 14 COMPARISON: Comparison is made with prior mammogram done earlier in the day. FINDINGS: LEFT Breast: The lower outer quadrant of the left breast was examined with ultrasound. Extremely dense fibroglandular tissue. Incidental note is made of a 4 mm x 4 mm x 3 mm cyst at the 4:00 position of the breast at 4 cm from the nipple. US/Breast Limited Unilateral IMPRESSION: 4 mm x 4 mm x 3 mm cyst at the 4:00 position of the breast at 4 cm from the nipple. Extremely dense breast tissue. ASSESSMENT CATEGORY: BIRADS Category 2: Benign. A letter regarding these results will be sent to the patient by the facility within 30 days. Electronically Signed: Jaime Harry MD at 8:59 EST ,
== END | disposition home or self-care (01) ==
LOC: OPBI 14:14
PROVIDERS: PCP Family Medicine; Referring Provider Obstetrics & Gynecology; Visit Provider Obstetrics & Gynecology
DX: N63.23 Unspecified lump in the left breast, lower outer quadrant (principal)
CPT/HCPCS: 76642; 77062; 77066; G0279